=== PATIENT | female | born 1980 | race Caucasian/White ===

== ENCOUNTER 2016-10-09 22:57 | Emergency (ER) | payer MEDICAID, MEDICARE ==
[2016-10-10] MEDS ORDERED: ONDANSETRON ODT 4 MG TAB ONE (02:53)
[2016-10-10] MEDS ORDERED: TDaP 0.5 ML VIAL IM.VACC ONE (02:54)
[2016-10-10] MEDS ORDERED: DILAUDID 1 MG/ML AMP ONE ×2 (02:54→03:56)
== END 2016-10-10 04:47 | disposition home or self-care (01) ==
LOC: ER 22:57
CPT/HCPCS: 70450; 71010; 72125; 90471; 96372